=== PATIENT | female | born 1975 | race Hispanic/Latino ===

== ENCOUNTER → 2017-05-12 | Outpatient (CLI) | payer BC ==
[~2017-05-12] MED LIST: BUPR-47 PO; CHOL500050 PO; CITA-107 PO; CYCL10TA7 PO; LEVO100T12 PO; LORA1TAB3 PO; NAPR-1084 PO; POTA-9 PO
== END | disposition home or self-care (01) ==
LOC: SHCH 14:12
PROVIDERS: ATTEND Internal Medicine Cardiovascular Disease
DX: R07.9 Chest pain, unspecified (principal)
CPT/HCPCS: 93306

== ENCOUNTER → 2017-06-11 | Outpatient (CLI) | payer OTHER | END | disposition home or self-care (01) | LOC: OIH 11:07 | PROVIDERS: ATTEND Internal Medicine Cardiovascular Disease | DX: Z13.6 Encounter for screening for cardiovascular disorders (principal) | CPT/HCPCS: 75571 ==